=== PATIENT | female | born 1970 | race Caucasian/White ===

== ENCOUNTER 2020-12-02 13:54 | Emergency (ER) | payer OTHER ==
[2020-12-02 14:28] LABS: BASOPHIL 0.8 % (0-2); EOSINOPHIL 0.4 % (0-5); HCT 40.6 % (37.0-47.0); HGB 13.5 g/dl (12.5-16.0); LYMPHOCYTE 29.1 % (15-48); MCH 31.4 pg (25.0-31.0); MCHC 33.3 g/dL (32.0-36.0); MCV 94.4 fL (78.0-100.0); MONOCYTE 7.4 % (0-12); MPV 10.1 fL (6.0-9.5); NEUTROPHIL 62.2 % (41-80); NRBC 0; PLT 267 K/uL (150-400); RDW 11.9 % (11.5-14.0); WBC 7.9 K/uL (4.0-10.5)
[2020-12-02 15:32] LABS: ALBUMIN 3.8 g/dL (3.4-5.0); BILIRUBIN - TOTAL 0.4 mg/dL (0.2-1.0); BUN/CREAT RATIO (CALC) 14.3 RATIO; CREATININE 0.7 mg/dL (0.51-0.95); GLOBULIN (CALCULATION) 2.6 g/dL; POTASSIUM 3.7 mmol/L (3.5-5.1); TOTAL PROTEIN 6.4 g/dL (6.4-8.2)
== END 2020-12-02 17:28 | disposition home or self-care (01) ==
LOC: FER 13:54
PROVIDERS: Emergency Medicine
DX: R07.89 Other chest pain (principal)
CPT/HCPCS: 36415; 71045; 80053; 84484; 85025; 85379; 93005